=== PATIENT | female | born 1945 | race Caucasian/White ===

== ENCOUNTER 2020-06-17 08:13 | Outpatient (CLI) | payer MEDICARE, OTHER ==
[~2020-06-17] VITALS: Ht 170.2 cm; Wt 124.7 kg
[2020-06-17 09:28] LABS: ABG BASE EXCESS 1.9 mmol/L (-2.0-2.0); ABG HCO3 25.8 mmol/L (22.0-26.0); ABG OXYGEN SATURATION 98.2 % (94-97); ABG PCO2 (T) 37.6 mmHg (32.0-45.0); ABG PO2 (T) 118.4 mmHg (75.0-100.0); ALLEN'S TEST POSITIVE; FCOHb 0.4 % (0.0-3.9); FLOW 3 L/min; FO2Hb 97.8 % (94-97); TOTAL HEMOGLOBIN 12.1 G/dl (12.0-16.0)
[2020-06-17 09:38] LABS: BASOPHILS % (AUTO) 0.4 % (0-1); EOSINOPHILS # (AUTO) 0.5 X10'3 (0-0.9); EOSINOPHILS % (AUTO) 5.9 % (0-6); HEMATOCRIT 35.2 % (35.0-45.0); HEMOGLOBIN 11.4 g/dl (12.0-16.0); LYMPHOCYTES # (AUTO) 0.9 X10'3 (1.1-4.8); LYMPHOCYTES % (AUTO) 11.5 % (21-51); MEAN CORPUSCULAR HEMOGLOBIN 28.1 PG (27.0-31.0); MEAN CORPUSCULAR HGB CONC 32.4 g/dL (33.0-36.5); MEAN CORPUSCULAR VOLUME 86.6 FL (78-98); MEAN PLATELET VOLUME 9.1 FL (7.4-10.4); MONOCYTES # (AUTO) 0.5 X10'3 (0-0.9); MONOCYTES % (AUTO) 6.5 % (2-12); NEUTROPHILS # (AUTO) 5.8 X10'3 (1.8-7.7); NEUTROPHILS % (AUTO) 75.7 % (42-75); PLATELET COUNT 194 X10'3 (140-440); RED BLOOD COUNT 4.06 X10'6 (4.20-5.60); RED CELL DISTRIBUTION WIDTH 15.3 % (11.5-14.5); WHITE BLOOD COUNT 7.7 X10'3 (4.5-11.0)
[2020-06-17 09:40] LABS: PARTIAL THROMBOPLASTIN TIME 25 SECONDS (22-32)
[2020-06-17 09:41] LABS: ALANINE AMINOTRANSFERASE 17 U/L (12-78); ALBUMIN 3.1 G/DL (3.4-5.0); ALBUMIN/GLOBULIN RATIO 0.7 (1.1-1.5); ALKALINE PHOSPHATASE 64 IU/L (46-116); ANION GAP 6 (8-16); ASPARTATE AMINO TRANSFERASE 9 U/L (10-37); BILIRUBIN,TOTAL 0.3 MG/DL (0.1-1.0); BLOOD UREA NITROGEN 28 MG/DL (7-18); CALCIUM 9.6 MG/DL (8.5-10.1); CHLORIDE 107 MMOL/L (99-107); GLUCOSE 158 MG/DL (70-104); SODIUM 142 MMOL/L (135-145); TOTAL CARBON DIOXIDE 29.2 MMOL/L (24-32); TOTAL PROTEIN 7.8 G/DL (6.4-8.2); eGFR 55 ML/MIN
[2020-06-17] MEDS ORDERED: albuterol 2.5 MG/3 ML nebule NEB ONE (09:45)
[2020-06-17] MEDS ORDERED: MESSAGE TO NURSING PO ONE (12:15)
== END 2020-06-17 23:59 | disposition home or self-care (01) ==
LOC: RT 08:13
PROVIDERS: ATTEND Internal Medicine Cardiovascular Disease
DX: J44.9 Chronic obstructive pulmonary disease, unspecified (principal); I65.23 Occlusion and stenosis of bilateral carotid arteries; I25.10 Atherosclerotic heart disease of native coronary artery without angina pectoris; I35.0 Nonrheumatic aortic (valve) stenosis; I70.0 Atherosclerosis of aorta; J98.11 Atelectasis; I51.7 Cardiomegaly; I77.819 Aortic ectasia, unspecified site; K76.0 Fatty (change of) liver, not elsewhere classified; K57.30 Diverticulosis of large intestine without perforation or abscess without bleeding; M47.816 Spondylosis without myelopathy or radiculopathy, lumbar region
CPT/HCPCS: 36415; 36600; 71046; 71275; 74174; 74175; 80053; 82803; 85018; 85025; 85610; 85730; 87635; 93880; 94060; 94727; 94729; 94760

== ENCOUNTER 2024-11-09 10:24 | Emergency (ER) | payer MEDICARE, OTHER ==
[~2024-11-09] VITALS: Ht 154.9 cm; Wt 58.8 kg
[~2024-11-09 10:24] MED LIST: AMLO10TA53 PO; ASPI-1265 PO; CALC-97 PO; CARV6.252 PO; CHOL20004 PO; CLOP75TA34 PO; DOXA8TAB79 PO; FURO-149 PO; ISOS60TA71 PO; LOSA50TA64 PO; METF-438 PO; OMEP20CA16 PO; PRAV80TA75 PO; UBID100C16 PO
--- NOTE | 2024-11-09 10:46 | Physician Documentation ---
History of Present Illness ~ Chief Complaint: Foot pain Stated Complaint: L FOOT PAIN Time Seen by MD: 10:29 HPI Is a 79-year-old female that presents to the emergency department for evaluation of right foot pain. Reports that she accidentally dropped her phone onto her foot yesterday causing significant pain at the time. Through the night and today the pain has progressed in the bruising has spread. She reports that it is difficult for her to get up and ambulate to the restroom multiple times a night due to the pain in her foot. Medication Reconciliation Allergies: Coded Allergies: WOJCIECH Inhibitors (Verified Allergy, Unknown, 06/17/20) Scheduled Amlodipine Besylate (Amlodipine Besylate), 1 TAB PO HS, (Reported) Aspirin (Aspirin), 1 TAB.CHEW PO DAILY, (Reported) Calcium Carbonate/Vitamin D3 (Calcium 500 + D Tablet), 1 TAB PO DAILY, (Reported) Carvedilol (Carvedilol), 1 TAB PO Q12H, (Reported) Cholecalciferol (Vitamin D), 1 TAB PO DAILY, (Reported) Clopidogrel Bisulfate (Clopidogrel), 75 MG PO DAILY Doxazosin Mesylate (Doxazosin Mesylate), 1 TAB PO BID, (Reported) Furosemide (Lasix), 1 TAB PO DAILY, (Reported) Isosorbide Mononitrate (Isosorbide Mononitrate Er), 1 TAB PO DAILY, (Reported) Losartan Potassium (Losartan Potassium), 1 TAB PO DAILY, (Reported) Metformin HCl (Metformin HCl), 1 TAB PO Q12H, (Reported) Omeprazole (Omeprazole), 1 CAP PO DAILY, (Reported) Pravastatin Sodium (Pravastatin Sodium), 1 TAB PO HS, (Reported) Ubidecarenone (Coq-10), 400 MG PO DAILY, (Reported) Review of Systems ROS As stated above in the HPI, otherwise all systems are reviewed and negative. Physical Exam Vital Signs: Temperature: 98.0, Source: Temporal, Heart Rate: 80, Respiratory Rate: 16, BP: 174/107, Pulse Oximetry: 93, Weight: 58.800 Oxygen Flow Rate: 3.0 Physical Exam VITALS: Reviewed and as above. GENERAL: Alert, no apparent distress. MUSCULOSKELETAL No deformities, swelling to right foot, pain with exam SKIN: Warm and dry, no rash NEURO: Oriented x4, No motor or sensory deficit PSYCH: Normal mood and affect, no agitation Progress Results/Orders Results/Orders Orders - ABBY KINSEY [employer] Foot, Complete (3vw Min) (11/09/24 10:31) Ortho Orders (11/09/24 11:41) Completed Orders - ABBY [employer] Foot, Complete (3vw Min) (11/09/24 10:31) Vital Signs 11/09/24 10:27 Temp 98.0 Pulse 80 Resp 16 B/P (MAP) 174/107 Pulse Ox 93 O2 Flow Rate 3.0 Medical Decision Making Findings Patient presents with left foot pain. Given history, exam and workup patient likely has soft tisse injury and bruising. I have low suspicion for fracture, dislocation, significant ligamentous injury, septic arthritis, gout flare, new autoimmune arthropathy, or gonococcal arthropathy. Departure Disposition: HOME / SELF CARE / HOMELESS Impression: Primary Impression: Foot pain Condition: Stable Referrals: NO PRIMARY CARE PROVIDER (PCP) Education Educated regarding: treatment, need for follow up ABBY KINSEYP Nov 09, 2024 10:45
--- NOTE | 2024-11-09 11:14 | RADIOLOGY REPORT ---
CLINICAL INDICATION: FOOT PAIN TECHNIQUE: Left DI FOOT, COMPLETE (3VW MIN) Comparison: None FINDINGS/IMPRESSION: : There is no evidence of acute fracture or dislocation. Soft tissues are unremarkable. Degenerative spurring of the calcaneus.
[2024-11-09 12:03] VITALS: BP 170/79; PULSE 80; RESP 16; TEMP 98; O2SAT 93
== END 2024-11-09 12:06 | disposition home or self-care (01) ==
LOC: ER 10:25
DX: M79.672 Pain in left foot (principal); Z88.8 Allergy status to other drugs, medicaments and biological substances
CPT/HCPCS: 73630; 99283; L4360